=== PATIENT | male | born 1965 | race Caucasian/White ===

== ENCOUNTER 2021-04-29 09:25 | Inpatient (IN) ==
[2021-04-29 09:39] VITALS: BMI 28.8
[2021-04-29] MEDS ORDERED: MORPHINE SULFATE INJ 2 MG INJ IVP ONE (10:09)
[2021-04-29] MEDS ORDERED: ZOFRAN INJ 4 MG VIAL IVP ONE (10:09)
--- NOTE | 2021-04-29 10:13 | DR.GIBLEED ---
HPI Time Seen Time Seen by Provider: 04/29/21 10:06 Primary Care Physician Primary Care Physician: TREVOR STOVER HPI Comment HPI Comment: Started with pain and n/v several times last night followed by persistent stools with dark red blood; pain is worsening; no cp, sob, fever, chills or prior episodes of bloody diarrhea; smokes 1/2 ppd but denies alcohol. Complaints Chief Complaint:: PT C/O BEING UP ALL NIGHT HAVING CHANCE CONSTANT ABD PAINS , AND HAVING VOMITING ( DARK COLORED EMESIS ), AND BLOOD IN STOOLS ( DARK RED ) ..BR PT DOES TAKE AN ASA A DAY 325MG ,BR COVID-19 Coronavirus risk:travel/contact w/high risk person: No Has patient experienced Coronavirus symptoms: No Source History Provided: Patient Mode of Arrival Mode of Arrival: Ambulatory Timing Onset of Chief Complaint: 04/28/21 Quality Vomitus: DARK BROWN Stools: DARK RED PMH PMH Past Medical History: Yes Past Medical History: COPD, Diabetes, Hypertension and Seizures Past Medical History Comment: ENLARGED HEART ,BR Past Surgical History: Yes Past Surgical History Comment: LAP SURGERY TO KNEES Family History History of Family Medical Conditions: Yes Family Medical History: Diabetes Mellitus Social History Does patient currently use any type of tobacco product: Yes Have you used tobacco products in the last 12 months: Yes Type of Tobacco Use: Cigarettes How many years tobacco product used: 47 Does any household member use tobacco: No Alcohol Use: None Do you use any recreational Drugs:: No Lives With: Family Lives Where: Home Travel Risk Coronavirus risk:travel/contact w/high risk person: No Has patient experienced Coronavirus symptoms: No Infectious screening In the last 2 months have you had wt loss of >10#?: NO Have you had fever, night sweats or hemotysis?: No Have you traveled outside the country in the last 6 months?: No Isolation: Standard ROS Review of Systems Constitutional: No Symptoms Reported Eyes: No Symptoms Reported ENTM: No Symptoms Reported Respiratoy: No Symptoms Reported Cardiovascular: No Symptoms Reported Genitourinary: No Symptoms Reported Neurological: No Symptoms Reported Musculoskeletal: No Symptoms Reported Integumentary: No Symptoms Reported Hematologic/Lymphatic: No Symptoms Reported Endocrine: No Symptoms Reported Psychiatric: No Symptoms Reported PE Vital Signs Vitals: Temperature 97.9 F Pulse Rate 87 Respiratory Rate 15 Blood Pressure 148/80 O2 Sat by Pulse Oximetry 97 General Limitations: No Limitations General Appearance: Alert and In No Apparent Distress Head Head Exam: Normal Inspection Eyes Eye exam: Normal Appearance ENT ENT Exam: Normal Exam Neck Neck Exam: Normal Inspection Chest Chest Inspection: Normal Inspection Respiratory Respiratory Exam: Normal Lung Sounds Bilat Respiratory Exam: Bilateral: Clear to Auscultation Cardiovascular Cardiovascular Exam: Regular Rate and Normal Rhythm Abdominal Exam Abdominal Exam: Normal Inspection, Normal Bowel Sounds, Soft and Tenderness Abdominal Tenderness: Diffuse and Moderate Extremities Extremities Exam: Normal Inspection Neurologic Neurological Exam: Alert and Oriented X3 Skin Skin Exam: Warm, Dry, Intact and Normal Color DIFFERENTIAL DIAGNOSIS Differential Diagnosis Differential Diagnosis: Diverticulosis, Gastritis, Gastroenteritis and Inflammatory BD COURSE Reevaluation 1st: Improved (pain is better) ROR Labs Reviewed Laboratory Results Reviewed?: Yes Result Diagrams: 04/29/21 10:25 04/29/21 10:25 Laboratory: WBC 27.3 X10^3/uL (3.6-10.0) H 04/29/21 10:25 RBC 5.38 X10^6/uL (4.7-6.0) 04/29/21 10:25 Hgb 15.0 g/dL (13.5-18.0) 04/29/21 10:25 Hct 45.3 % (42.0-54.0) 04/29/21 10:25 MCV 84.1 fL (80.0-100.0) 04/29/21 10:25 MCH 27.8 pg (27.0-34.0) 04/29/21 10:25 MCHC 33.1 g/dL (33.0-35.0) 04/29/21 10:25 RDW 14.3 % (11.6-16.5) 04/29/21 10:25 Plt Count 374 X10^3/uL (150.0-450.0) 04/29/21 10:25 Plt Count Comment Adequate (ADEQUATE) 04/29/21 10:25 MPV 8.4 fL (7.4-11.0) 04/29/21 10:25 Neut % (Auto) 85.8 % (42.0-75.0) H 04/29/21 10:25 Lymph % (Auto) 7.6 % (21.0-51.0) L 04/29/21 10:25 [place] % (Auto) 5.5 % (0.0-13.0) 04/29/21 10:25 Eos % (Auto) 0.7 % (0.9-2.9) L 04/29/21 10:25 Baso % (Auto) 0.4 % (0.2-1.0) 04/29/21 10:25 Neut # (Auto) 23.4 x10^3/uL (2.2-4.8) H 04/29/21 10:25 Lymph # (Auto) 2.1 X10^3/uL (1.3-2.9) 04/29/21 10:25 [place] # (Auto) 1.5 x10^3/uL (0.3-0.8) H 04/29/21 10:25 Eos # (Auto) 0.2 x10^3/uL (0.0-0.2) 04/29/21 10:25 Baso # (Auto) 0.1 X10^3/uL (0.0-0.1) 04/29/21 10:25 Absolute Nucleated RBC 0.0 /100WBC 04/29/21 10:25 Total Counted 100 04/29/21 10:25 Neutrophils % (Manual) 85 % (39-76) H 04/29/21 10:25 Band Neutrophils % 5 % (0-10) 04/29/21 10:25 Lymphocytes % (Manual) 9 % (13-43) L 04/29/21 10:25 Monocytes % (Manual) 1 % (4-9) L 04/29/21 10:25 Plt Morphology Comment Normal (NORMAL) 04/29/21 10:25 RBC Morphology Normal (NORMAL) 04/29/21 10:25 Sodium 138 mmol/L (136-145) 04/29/21 10:25 Corrected Sodium 140 mmol/L (136-145) 04/29/21 10:25 Potassium 4.6 mmol/L (3.5-5.1) 04/29/21 10:25 Chloride 103 mmol/L (98-107) 04/29/21 10:25 Carbon Dioxide 27.4 mmol/L (21-32) 04/29/21 10:25 BUN 29 mg/dL (7-18) H 04/29/21 10:25 Creatinine 0.78 mg/dL (0.70-1.30) 04/29/21 10:25 Est GFR (MDRD) Af Amer > 60 (>60) 04/29/21 10:25 Est GFR (MDRD) Non-Af > 60 (>60) 04/29/21 10:25 Glucose 200 mg/dL (65-99) H 04/29/21 10:25 Calcium 9.4 mg/dL (8.5-10.1) 04/29/21 10:25 Corrected Calcium TNP 04/29/21 10:25 Total Bilirubin 0.50 mg/dL (0.2-1.0) 04/29/21 10:25 AST 11 Units/L (15-37) L 04/29/21 10:25 ALT 24 Units/L (12-78) 04/29/21 10:25 Alkaline Phosphatase 101 Units/L (46-116) 04/29/21 10:25 Total Protein 8.2 g/dL (6.4-8.2) 04/29/21 10:25 Albumin 3.7 g/dL (3.4-5.0) 04/29/21 10:25 Globulin 4.5 g/dL (2.5-4.5) 04/29/21 10:25 Albumin/Globulin Ratio 0.8 Ratio (1.1-2.1) L 04/29/21 10:25 Specimen Type Clean catch urine 04/29/21 10:20 Urine Color Yellow (YELLOW) 04/29/21 10:20 Urine Appearance Clear (CLEAR) 04/29/21 10:20 Urine pH 6.0 (5.0 - 8.0) 04/29/21 10:20 Ur Specific [place] 1.020 (1.000-1.030) 04/29/21 10:20 Urine Protein Negative (NEGATIVE) 04/29/21 10:20 Urine Glucose (UA) Negative (NEGATIVE) 04/29/21 10:20 Urine Ketones Negative (NEGATIVE) 04/29/21 10:20 Urine Occult Blood Negative (NEGATIVE) 04/29/21 10:20 Urine Nitrite Negative (NEGATIVE) 04/29/21 10:20 Urine Bilirubin Negative (NEGATIVE) 04/29/21 10:20 Urine Urobilinogen Normal (NORMAL) 04/29/21 10:20 Ur Leukocyte Esterase Negative (NEGATIVE) 04/29/21 10:20 SARS-CoV-2 (PCR) Negative (NEGATIVE) 04/29/21 12:01 Influenza Type A (PCR) Negative (NEGATIVE) 04/29/21 12:01 Influenza Type B (PCR) Negative (NEGATIVE) 04/29/21 12:01 RSV (PCR) Negative (NEGATIVE) 04/29/21 12:01 XRAY XRAY Interpreted by: Radiologist X-ray Results: ct abd/pelvis: 1. Focal splenic flexure colitis, probably diverticulitis. 2. Nonobstructing right renal calculus. Opioid Opioid Risk Tool Age (Luis A box if 16-45): No History of Preadolescent Sexual Abuse: No Total: 0 Total Score Risk Category: Low Risk Copyright: Antwon NICOLE predicting aberrant behaviors Diagnosis Discharge Problem: Colitis, Colitis with rectal bleeding Leukocytosis Qualifiers: Leukocytosis type: lymphocytosis Qualified Code(s): D72.820 - Lymphocytosis (symptomatic) Instructions Forms: Excuse From Work or School Precautions for COVID19 Patient Portal Social Distancing
[2021-04-29] MEDS ORDERED: MORPHINE SULFATE INJ 2 MG INJ ONE (10:14)
[2021-04-29] MEDS ORDERED: ZOFRAN INJ 4 MG VIAL ONE (10:14)
[2021-04-29] MEDS ORDERED: PERCOCET TAB 5/325 MG ONE (10:39)
[2021-04-29 10:40] LABS: BASOPHILS # (AUTO) 0.1 X10^3/uL (0.0-0.1); BASOPHILS % (AUTO) 0.4 % (0.2-1.0); EOSINOPHILS # (AUTO) 0.2 x10^3/uL (0.0-0.2); EOSINOPHILS % (AUTO) 0.7 % (0.9-2.9); HEMATOCRIT 45.3 % (42.0-54.0); LYMPHOCYTES # (AUTO) 2.1 X10^3/uL (1.3-2.9); LYMPHOCYTES % (AUTO) 7.6 % (21.0-51.0); MEAN CORPUSCULAR HEMOGLOBIN 27.8 pg (27.0-34.0); MEAN CORPUSCULAR HGB CONC 33.1 g/dL (33.0-35.0); MEAN CORPUSCULAR VOLUME 84.1 fL (80.0-100.0); MEAN PLATELET VOLUME 8.4 fL (7.4-11.0); MONOCYTES # (AUTO) 1.5 x10^3/uL (0.3-0.8); MONOCYTES % (AUTO) 5.5 % (0.0-13.0); NEUTROPHILS # (AUTO) 23.4 x10^3/uL (2.2-4.8); NEUTROPHILS % (AUTO) 85.8 % (42.0-75.0); PLATELET COUNT 374 X10^3/uL (150.0-450.0); RED BLOOD COUNT 5.38 X10^6/uL (4.7-6.0); RED CELL DISTRIBUTION WIDTH 14.3 % (11.6-16.5); WHITE BLOOD COUNT 27.3 X10^3/uL (3.6-10.0)
[2021-04-29 10:47] LABS: ALANINE AMINOTRANSFERASE 24 Units/L (12-78); ALBUMIN 3.7 g/dL (3.4-5.0); ALKALINE PHOSPHATASE 101 Units/L (46-116); ASPARTATE AMINO TRANSFERASE 11 Units/L (15-37); BLOOD UREA NITROGEN 29 mg/dL (7-18); CALCIUM 9.4 mg/dL (8.5-10.1); CARBON DIOXIDE 27.4 mmol/L (21-32); CHLORIDE 103 mmol/L (98-107); COR NA(FOR HYPERGLY) 140 mmol/L (136-145); CREATININE 0.78 mg/dL (0.70-1.30); SODIUM 138 mmol/L (136-145); TOTAL PROTEIN 8.2 g/dL (6.4-8.2); eGFR NON BLACK RACES > 60 (>60)
[2021-04-29 11:01] LABS: BAND NEUTROPHILS % 5 % (0-10); PLATELET MORPHOLOGY COMMENT NORMAL (NORMAL)
[2021-04-29 11:03] LABS: BILIRUBIN,URINE NEGATIVE (NEGATIVE); BLOOD/HEMOGLOBIN,URINE NEGATIVE (NEGATIVE); GLUCOSE, URINE NEGATIVE (NEGATIVE); KETONES,URINE NEGATIVE (NEGATIVE); LEUKOCYTE ESTERASE ,URINE NEGATIVE (NEGATIVE); NITRITES,URINE NEGATIVE (NEGATIVE); PROTEIN,URINE NEGATIVE (NEGATIVE); UROBILINOGEN,URINE NORMAL (NORMAL)
[2021-04-29 11:05] LABS: APPEARANCE,URINE CLEAR (CLEAR); COLOR,URINE YELLOW (YELLOW)
--- NOTE | 2021-04-29 11:42 | CT ---
HISTORYABD PAIN, MELENA hypertension. History of seizures. Diabetes mellitus.STUDYABDOMEN/PELVIS W/O CONCOMPARISONNoneTECHNIQUEMultiple CT axial images of the abdomen and pelvis were obtained without IV contrast. Coronal and sagittal images were reconstructed. Dose reduction techniques included Automated Exposure Control (AEC) and adjustment of mA and kV.FINDINGSFocal edema is noted in the left upper abdomen around the splenic flexure of the colon and involving the proximal descending segment. There is wall thickening and a few isolated diverticula. This is compatible with colitis. Probably diverticulitis.No pericolonic abscess no bowel obstruction or free air.A normal appendix is not identified. But there is no inflammation around the cecum or at the expected location of the appendix.Small stone right kidney measures 2 mm. No abnormal calcification in the left kidney. No hydronephrosis or perirenal edema.The ureters are not dilated. Urinary bladder is contracted.Small right lung nodule measures 4 mm, image 2 series 3.Typically, this does not require any routine surveillance. If the patient is high risk for cancer, then you might consider an optional follow up chest CT in 12 months. This follow-up is based on recommendations established by the Fleischner Society 2017.Atherosclerotic calcifications are present in the coronary arteries. Liver, gallbladder, spleen, adrenal glands, and pancreas are unremarkable. Degenerative changes are present in the spine. Osteoarthritic changes are present in the left hip. There may be avascular necrosis or this could be a large subchondral cyst in the femoral head.IMPRESSION1. Focal splenic flexure colitis, probably diverticulitis2. Nonobstructing right renal calculusElectronically signed by: Maldonado Cai (Apr 29, 2021 11:39:49)
[2021-04-29] MEDS ORDERED: ZOSYN VIAL 3.375 GRAMS 3.375 G in NS 100 ML IV + SPIKE MINIBAG* 100 ML IV ONE (12:06)
[2021-04-29] MEDS ORDERED: NS 1000 ML 1,000 ML ONE (12:20)
[2021-04-29] MEDS ORDERED: ZOSYN VIAL 3.375 GRAMS IV ONE (12:20)
[2021-04-29] MEDS ORDERED: NS 100 ML IV + SPIKE MINIBAG* 100 ML IV ONE (12:21)
[2021-04-29] MEDS: ZOSYN VIAL 3.375 GRAMS 3.375 G in NS 100 ML IV + SPIKE MINIBAG* 100 ML IV SCH ×3 (12:30→21:29)
[2021-04-29] MEDS: NS 1000 ML 1,000 ML IV SCH (12:30)
[2021-04-29] MEDS ORDERED: MORPHINE SULFATE INJ 4 MG ONE (17:35)
[2021-04-29] MEDS: MORPHINE SULFATE INJ 4 MG IVP PRN ×2 (17:38→23:41)
[2021-04-29] MEDS: ZOFRAN INJ 4 MG VIAL IVP PRN (23:41)
[2021-04-30] MEDS: NS 1000 ML 1,000 ML IV SCH ×3 (02:47→18:20)
[2021-04-30] MEDS: ZOSYN VIAL 3.375 GRAMS 3.375 G in NS 100 ML IV + SPIKE MINIBAG* 100 ML IV SCH ×3 (06:00→21:28)
[2021-04-30] MEDS: MORPHINE SULFATE INJ 4 MG IVP PRN ×3 (06:01→21:55)
[2021-04-30 06:21] LABS: BASOPHILS % (AUTO) 0.2 % (0.2-1.0); EOSINOPHILS # (AUTO) 0.1 x10^3/uL (0.0-0.2); EOSINOPHILS % (AUTO) 0.5 % (0.9-2.9); HEMATOCRIT 42.8 % (42.0-54.0); HEMOGLOBIN 14.3 g/dL (13.5-18.0); LYMPHOCYTES # (AUTO) 2.2 X10^3/uL (1.3-2.9); LYMPHOCYTES % (AUTO) 10.1 % (21.0-51.0); MEAN CORPUSCULAR HEMOGLOBIN 28.2 pg (27.0-34.0); MEAN CORPUSCULAR HGB CONC 33.3 g/dL (33.0-35.0); MEAN CORPUSCULAR VOLUME 84.7 fL (80.0-100.0); MEAN PLATELET VOLUME 8.4 fL (7.4-11.0); MONOCYTES # (AUTO) 1.1 x10^3/uL (0.3-0.8); MONOCYTES % (AUTO) 5.1 % (0.0-13.0); NEUTROPHILS # (AUTO) 18.1 x10^3/uL (2.2-4.8); NEUTROPHILS % (AUTO) 84.1 % (42.0-75.0); PLATELET COUNT 353 X10^3/uL (150.0-450.0); RED BLOOD COUNT 5.06 X10^6/uL (4.7-6.0); RED CELL DISTRIBUTION WIDTH 14.4 % (11.6-16.5); WHITE BLOOD COUNT 21.5 X10^3/uL (3.6-10.0)
[2021-04-30 06:27] LABS: ALANINE AMINOTRANSFERASE 16 Units/L (12-78); ALBUMIN 3.2 g/dL (3.4-5.0); ALKALINE PHOSPHATASE 94 Units/L (46-116); ASPARTATE AMINO TRANSFERASE 9 Units/L (15-37); BLOOD UREA NITROGEN 22 mg/dL (7-18); CALCIUM 8.9 mg/dL (8.5-10.1); CARBON DIOXIDE 28.3 mmol/L (21-32); CHLORIDE 103 mmol/L (98-107); COR CA(FOR HYPOALB) 9.5 mg/dL (8.5-10.1); COR NA(FOR HYPERGLY) 140 mmol/L (136-145); CREATININE 0.63 mg/dL (0.70-1.30); SODIUM 138 mmol/L (136-145); TOTAL PROTEIN 7.5 g/dL (6.4-8.2); eGFR NON BLACK RACES > 60 (>60)
[2021-04-30 07:02] LABS: PLATELET MORPHOLOGY COMMENT NORMAL (NORMAL)
[2021-04-30] MEDS ORDERED: MORPHINE SULFATE INJ 4 MG IVP PRN (07:13)
[2021-04-30] MEDS: HumuLIN R SUBCUT PRN (13:06)
--- NOTE | 2021-04-30 15:13 | DR.H&P ---
H&P - History & Physical for Day of: H&P Date: 04/29/21 - Chief Complaint Chief Complaint: ABDOMINAL PAIN, BLOOD IN STOOL - History of Present Illness History of Present Illness: Pt is 56 WM, ER admission with co he Started with pain and n/v several times last night followed by persistent stools with dark red blood; pain is worsening; no cp, sob, fever, chills or prior episodes of bloody diarrhea; smokes 1/2 ppd but denies alcohol. Pt has pmh of "irregular hear beat", copd, htn, dm. pt admitted for treatment of acute colitis, gi bleed. - Past Medical History Past Medical History: Hypertension, Diabetes, Seizures, COPD - Past Surgical History Surgical History: Ortho Surgery - Family History Family Medical History: Diabetes Mellitus - Social History Does patient currently use any type of tobacco product: Yes Have you used tobacco products in the last 12 months: Yes Type of Tobacco Use: Cigarettes How many years tobacco product used: 47 Does any household member use tobacco: No Alcohol Use: None Drug Use: None - Medications Home Medications: No Known Drug Allergies Allergy (Verified 04/29/21 09:33) CONTINUE taking the following medications amoxicillin-pot clavulanate [Augmentin] 1 tab PO BID 04/29/21 [History] aspirin 325 mg PO DAILY 04/29/21 [History] celecoxib 200 mg PO DAILY 04/29/21 [History] cetirizine 10 mg PO HS 04/29/21 [History] cyclobenzaprine 10 mg PO DAILY PRN 04/29/21 [History] diclofenac sodium 50 mg PO BID PRN 04/29/21 [History] famotidine 20 mg PO DAILY 04/29/21 [History] gabapentin 300 mg PO BID 04/29/21 [History] lisinopril 10 mg PO BID 04/29/21 [History] lorazepam 1 mg PO BID PRN 04/29/21 [History] omeprazole 20 mg PO DAILY 04/29/21 [History] - Review of Systems Constitutional: Weakness Eyes: No Symptoms Reported ENT: No Symptoms Reported Respiratory: No Symptoms Reported Cardiovascular: No Symptoms Reported. denies: Edema Gastrointestinal: Nausea, Vomiting, Abdominal Pain Genitourinary: No Symptoms Reported Musculoskeletal: No Symptoms Reported Skin: No Symptoms Reported Neurological: No Symptoms Reported - Physical Exam Vital Signs: Temperature 98.5 F Pulse Rate [Left Radial] 92 Pulse Rate 85 Respiratory Rate 20 Blood Pressure [Left Arm] 135/72 Blood Pressure 146/82 O2 Sat by Pulse Oximetry 95 Oriented: Normal Eyes: Normal Ear: Normal Nose: Normal Throat: Normal Respiratory: RLL Diminished, LLL Diminished Cardiovascular: Irregular. negative: Edema : Normal Auscultation: Bowel Sounds: Increased Tenderness: LLQ, Epigastric Skin: Decreased Turgur Musculoskeletal: Normal Psychiatric: Anxiety Affect: Anxious Speech Pattern: Clear, Appropriate - Assessment/Plan (1) Colitis with rectal bleeding Status: Acute Plan: ADMIT, NPO, IV HYDRATION. IV ATBX, PAIN AND NAUSEA CONTROL. RESP CONSULT FOR PRN RT. VERIFY HOME MEDICATION. BP CONTROL, STOOL STUDIES (2) COPD (chronic obstructive pulmonary disease) Status: Acute (3) Hypertension Status: Acute (4) Diabetes Status: Acute - Allergies Allergies/Adverse Reactions: Allergies Allergy/AdvReac Type Severity Reaction Status Date / Time No Known Drug Allergies Allergy Verified 04/29/21 09:33
[2021-04-30] MEDS: NICOTINE PATCH TD SCH (17:08)
[2021-04-30] MEDS: PROTONIX INJ 40 MG VIAL IVP SCH (17:08)
[2021-04-30] MEDS: ZOFRAN INJ 4 MG VIAL IVP PRN (18:20)
[2021-04-30] MEDS: NEURONTIN CAP 300 MG PO SCH (20:50)
[2021-04-30] MEDS: ZESTRIL TAB 10 MG PO SCH (20:51)
[2021-05-01] MEDS: MORPHINE SULFATE INJ 4 MG IVP PRN ×3 (01:41→20:32)
[2021-05-01] MEDS: NS 1000 ML 1,000 ML IV SCH ×2 (04:21→20:31)
[2021-05-01] MEDS: ZOSYN VIAL 3.375 GRAMS 3.375 G in NS 100 ML IV + SPIKE MINIBAG* 100 ML IV SCH ×3 (05:35→21:03)
[2021-05-01] MEDS: NICOTINE PATCH TD SCH (08:31)
[2021-05-01] MEDS: NEURONTIN CAP 300 MG PO SCH ×2 (08:31→20:31)
[2021-05-01] MEDS: PROTONIX INJ 40 MG VIAL IVP SCH (08:31)
[2021-05-01] MEDS: ZESTRIL TAB 10 MG PO SCH ×2 (08:33→20:32)
[2021-05-01] MEDS: ATIVAN TAB 1 MG PO PRN ×2 (08:51→21:00)
[2021-05-01 10:46] LABS: BASOPHILS % (AUTO) 0.2 % (0.2-1.0); EOSINOPHILS # (AUTO) 0.1 x10^3/uL (0.0-0.2); EOSINOPHILS % (AUTO) 0.4 % (0.9-2.9); HEMATOCRIT 41.3 % (42.0-54.0); HEMOGLOBIN 13.4 g/dL (13.5-18.0); LYMPHOCYTES # (AUTO) 1.8 X10^3/uL (1.3-2.9); LYMPHOCYTES % (AUTO) 7.9 % (21.0-51.0); MEAN CORPUSCULAR HEMOGLOBIN 27.6 pg (27.0-34.0); MEAN CORPUSCULAR HGB CONC 32.4 g/dL (33.0-35.0); MEAN CORPUSCULAR VOLUME 85.2 fL (80.0-100.0); MEAN PLATELET VOLUME 8.5 fL (7.4-11.0); MONOCYTES # (AUTO) 1.6 x10^3/uL (0.3-0.8); MONOCYTES % (AUTO) 7.1 % (0.0-13.0); NEUTROPHILS # (AUTO) 19.2 x10^3/uL (2.2-4.8); NEUTROPHILS % (AUTO) 84.4 % (42.0-75.0); PLATELET COUNT 346 X10^3/uL (150.0-450.0); RED BLOOD COUNT 4.84 X10^6/uL (4.7-6.0); RED CELL DISTRIBUTION WIDTH 14.1 % (11.6-16.5); WHITE BLOOD COUNT 22.7 X10^3/uL (3.6-10.0)
[2021-05-01 11:04] LABS: ALANINE AMINOTRANSFERASE 13 Units/L (12-78); ALKALINE PHOSPHATASE 100 Units/L (46-116); ASPARTATE AMINO TRANSFERASE 8 Units/L (15-37); BLOOD UREA NITROGEN 14 mg/dL (7-18); CALCIUM 8.8 mg/dL (8.5-10.1); CARBON DIOXIDE 29.9 mmol/L (21-32); CHLORIDE 102 mmol/L (98-107); COR CA(FOR HYPOALB) 9.6 mg/dL (8.5-10.1); COR NA(FOR HYPERGLY) 139 mmol/L (136-145); CREATININE 0.66 mg/dL (0.70-1.30); SODIUM 138 mmol/L (136-145); TOTAL PROTEIN 7.4 g/dL (6.4-8.2); eGFR NON BLACK RACES > 60 (>60)
[2021-05-01 11:30] LABS: BAND NEUTROPHILS % 1 % (0-10)
[2021-05-01 11:31] LABS: PLATELET MORPHOLOGY COMMENT NORMAL (NORMAL)
[2021-05-01] MEDS: HumuLIN R SUBCUT PRN (12:28)
[2021-05-01] MEDS: LEVAQUIN PREMIX IV 500 MG 500 MG/100 ML BAG IV SCH (16:06)
[2021-05-02] MEDS: MORPHINE SULFATE INJ 4 MG IVP PRN ×4 (00:15→19:30)
[2021-05-02] MEDS: NS 1000 ML 1,000 ML IV SCH ×3 (05:09→23:19)
[2021-05-02] MEDS: ZOSYN VIAL 3.375 GRAMS 3.375 G in NS 100 ML IV + SPIKE MINIBAG* 100 ML IV SCH ×3 (05:09→21:29)
[2021-05-02 08:34] LABS: BASOPHILS # (AUTO) 0.1 X10^3/uL (0.0-0.1); BASOPHILS % (AUTO) 0.8 % (0.2-1.0); EOSINOPHILS # (AUTO) 0.3 x10^3/uL (0.0-0.2); EOSINOPHILS % (AUTO) 1.9 % (0.9-2.9); HEMATOCRIT 39.8 % (42.0-54.0); HEMOGLOBIN 13.2 g/dL (13.5-18.0); LYMPHOCYTES # (AUTO) 2.8 X10^3/uL (1.3-2.9); LYMPHOCYTES % (AUTO) 17.3 % (21.0-51.0); MEAN CORPUSCULAR HEMOGLOBIN 28.3 pg (27.0-34.0); MEAN CORPUSCULAR HGB CONC 33.2 g/dL (33.0-35.0); MEAN CORPUSCULAR VOLUME 85.2 fL (80.0-100.0); MEAN PLATELET VOLUME 8.5 fL (7.4-11.0); MONOCYTES # (AUTO) 1.2 x10^3/uL (0.3-0.8); MONOCYTES % (AUTO) 7.8 % (0.0-13.0); NEUTROPHILS # (AUTO) 11.5 x10^3/uL (2.2-4.8); NEUTROPHILS % (AUTO) 72.2 % (42.0-75.0); PLATELET COUNT 304 X10^3/uL (150.0-450.0); RED BLOOD COUNT 4.66 X10^6/uL (4.7-6.0); RED CELL DISTRIBUTION WIDTH 13.9 % (11.6-16.5); WHITE BLOOD COUNT 15.9 X10^3/uL (3.6-10.0)
[2021-05-02 08:55] LABS: ALANINE AMINOTRANSFERASE 10 Units/L (12-78); ALBUMIN 2.7 g/dL (3.4-5.0); ALKALINE PHOSPHATASE 93 Units/L (46-116); ASPARTATE AMINO TRANSFERASE 9 Units/L (15-37); BLOOD UREA NITROGEN 10 mg/dL (7-18); CALCIUM 8.7 mg/dL (8.5-10.1); CARBON DIOXIDE 31.3 mmol/L (21-32); CHLORIDE 102 mmol/L (98-107); COR CA(FOR HYPOALB) 9.7 mg/dL (8.5-10.1); COR NA(FOR HYPERGLY) 140 mmol/L (136-145); SODIUM 139 mmol/L (136-145); TOTAL PROTEIN 7.1 g/dL (6.4-8.2); eGFR NON BLACK RACES > 60 (>60)
[2021-05-02] MEDS: NEURONTIN CAP 300 MG PO SCH ×2 (09:20→20:41)
[2021-05-02] MEDS: NICOTINE PATCH TD SCH (09:20)
[2021-05-02] MEDS: LEVAQUIN PREMIX IV 500 MG 500 MG/100 ML BAG IV SCH (09:20)
[2021-05-02] MEDS: ZESTRIL TAB 10 MG PO SCH ×2 (09:22→20:41)
[2021-05-02] MEDS: PROTONIX INJ 40 MG VIAL IVP SCH (09:22)
--- NOTE | 2021-05-02 10:19 | RAD ---
HISTORYABDOMINAL DISTENTIONSTUDYACUTE ABDOMEN x-ray SERIES, one view chest and two view abdomenCOMPARISONCT abdomen 04/29/2021FINDINGSHeart is normal in size. Moderate to prominent arthritic changes are seen in the shoulders. Mild linear atelectasis is seen in the lingula. Possible mild underlying COPD.No evidence of free intraperitoneal air. New moderate dilation of the colon with air. Colon measures up to 7.1 cm in diameter. Mild increased small bowel air is seen. There is a single mildly prominent loop of small bowel in the left mid abdomen measuring 2.9 cm in diameter. No air-fluid levels are seen.IMPRESSIONNew moderate dilation of colon with air and mild dilation of small bowel with air is most likely due to ileus.Electronically signed by: Prakash Medel (May 02, 2021 10:16:56)
[2021-05-02] MEDS ORDERED: DUONEB 0.5 MG/3 MG (3 mL) NEB PRN (17:00)
[2021-05-02] MEDS: ATIVAN TAB 1 MG PO PRN (20:41)
[2021-05-03] MEDS: MORPHINE SULFATE INJ 4 MG IVP PRN ×3 (01:08→09:43)
[2021-05-03] MEDS: ZOSYN VIAL 3.375 GRAMS 3.375 G in NS 100 ML IV + SPIKE MINIBAG* 100 ML IV SCH ×3 (05:22→21:06)
[2021-05-03 08:16] LABS: BASOPHILS # (AUTO) 0.1 X10^3/uL (0.0-0.1); BASOPHILS % (AUTO) 0.5 % (0.2-1.0); EOSINOPHILS # (AUTO) 0.3 x10^3/uL (0.0-0.2); EOSINOPHILS % (AUTO) 2.5 % (0.9-2.9); HEMOGLOBIN 12.7 g/dL (13.5-18.0); LYMPHOCYTES # (AUTO) 2.6 X10^3/uL (1.3-2.9); LYMPHOCYTES % (AUTO) 21.8 % (21.0-51.0); MEAN CORPUSCULAR HEMOGLOBIN 28.1 pg (27.0-34.0); MEAN CORPUSCULAR HGB CONC 33.3 g/dL (33.0-35.0); MEAN CORPUSCULAR VOLUME 84.3 fL (80.0-100.0); MEAN PLATELET VOLUME 8.1 fL (7.4-11.0); MONOCYTES % (AUTO) 8.4 % (0.0-13.0); NEUTROPHILS # (AUTO) 7.9 x10^3/uL (2.2-4.8); NEUTROPHILS % (AUTO) 66.8 % (42.0-75.0); PLATELET COUNT 310 X10^3/uL (150.0-450.0); RED BLOOD COUNT 4.51 X10^6/uL (4.7-6.0); RED CELL DISTRIBUTION WIDTH 13.8 % (11.6-16.5); WHITE BLOOD COUNT 11.8 X10^3/uL (3.6-10.0)
[2021-05-03] MEDS: NICOTINE PATCH TD SCH (08:37)
[2021-05-03] MEDS: ZESTRIL TAB 10 MG PO SCH ×3 (08:38→20:42)
[2021-05-03] MEDS: PROTONIX INJ 40 MG VIAL IVP SCH (08:38)
[2021-05-03] MEDS: NEURONTIN CAP 300 MG PO SCH ×2 (08:38→20:41)
[2021-05-03 09:14] LABS: ALANINE AMINOTRANSFERASE 11 Units/L (12-78); ALBUMIN 2.5 g/dL (3.4-5.0); ALKALINE PHOSPHATASE 84 Units/L (46-116); ASPARTATE AMINO TRANSFERASE 10 Units/L (15-37); BLOOD UREA NITROGEN 9 mg/dL (7-18); CALCIUM 8.3 mg/dL (8.5-10.1); CARBON DIOXIDE 27.5 mmol/L (21-32); CHLORIDE 103 mmol/L (98-107); COR CA(FOR HYPOALB) 9.5 mg/dL (8.5-10.1); CREATININE 0.64 mg/dL (0.70-1.30); SODIUM 139 mmol/L (136-145); TOTAL PROTEIN 6.4 g/dL (6.4-8.2); eGFR NON BLACK RACES > 60 (>60)
[2021-05-03] MEDS: LEVAQUIN PREMIX IV 500 MG 500 MG/100 ML BAG IV SCH (09:43)
--- NOTE | 2021-05-03 11:02 | RAD ---
HISTORYABDOMINAL DISTENTION, ILEUSSTUDYACUTE ABDOMEN x-ray SERIES, one view chest and two view abdomenCOMPARISONX-ray 05/02/2021FINDINGSLikely mild atelectasis at the left lung base. Heart is normal in size. No pneumothorax or pleural effusion is seen.No free intraperitoneal air is seen. There is persistent moderate dilation of the colon with air. Ascending colon is dilated to 8.9 cm compared to 7.6 cm previously. Mild constipation is seen in the cecum. Mild increased small bowel air and distention is seen compared to prior study, also. No air-fluid levels are seen.IMPRESSIONModerate ileus has slightly worsened since prior study.Electronically signed by: Prakash Medel (May 03, 2021 11:00:21)
[2021-05-03] MEDS: MORPHINE SULFATE INJ 2 MG INJ IVP PRN ×3 (13:45→21:51)
[2021-05-03] MEDS: NS 1000 ML 1,000 ML IV SCH ×2 (15:18→20:41)
[2021-05-03] MEDS ORDERED: DULCOLAX SUPPOSITORY 10 MG RECTAL ONE (18:53)
[2021-05-03 21:09] LABS: CRYPTOSPORIDIUM PARVUM ANTIGEN NEGATIVE (NEGATIVE); GIARDIA LAMBLIA ANTIGEN NEGATIVE (NEGATIVE)
[2021-05-04] MEDS: MORPHINE SULFATE INJ 2 MG INJ IVP PRN ×4 (02:00→20:34)
[2021-05-04] MEDS: ZOSYN VIAL 3.375 GRAMS 3.375 G in NS 100 ML IV + SPIKE MINIBAG* 100 ML IV SCH ×3 (05:46→21:24)
[2021-05-04 06:12] LABS: BASOPHILS % (AUTO) 0.4 % (0.2-1.0); EOSINOPHILS # (AUTO) 0.3 x10^3/uL (0.0-0.2); EOSINOPHILS % (AUTO) 2.2 % (0.9-2.9); HEMATOCRIT 36.3 % (42.0-54.0); HEMOGLOBIN 12.2 g/dL (13.5-18.0); LYMPHOCYTES # (AUTO) 2.3 X10^3/uL (1.3-2.9); LYMPHOCYTES % (AUTO) 19.4 % (21.0-51.0); MEAN CORPUSCULAR HGB CONC 33.5 g/dL (33.0-35.0); MEAN CORPUSCULAR VOLUME 83.7 fL (80.0-100.0); MEAN PLATELET VOLUME 8.1 fL (7.4-11.0); MONOCYTES # (AUTO) 1.2 x10^3/uL (0.3-0.8); MONOCYTES % (AUTO) 10.3 % (0.0-13.0); NEUTROPHILS % (AUTO) 67.7 % (42.0-75.0); PLATELET COUNT 336 X10^3/uL (150.0-450.0); RED BLOOD COUNT 4.34 X10^6/uL (4.7-6.0); RED CELL DISTRIBUTION WIDTH 13.6 % (11.6-16.5); WHITE BLOOD COUNT 11.8 X10^3/uL (3.6-10.0)
[2021-05-04 06:38] LABS: BLOOD UREA NITROGEN 8 mg/dL (7-18); CARBON DIOXIDE 25.9 mmol/L (21-32); CHLORIDE 102 mmol/L (98-107); COR NA(FOR HYPERGLY) 139 mmol/L (136-145); CREATININE 0.63 mg/dL (0.70-1.30); SODIUM 138 mmol/L (136-145); eGFR NON BLACK RACES > 60 (>60)
--- NOTE | 2021-05-04 06:40 | RAD ---
HISTORYAbdominal distensionSTUDYAcute abdominal [id number]/28/2021FINDINGSThe heart is within normal limits in size. The emily are normal. The lung carreno are clear. There is continued colonic distension slightly increased when compared with the prior examination. Cecal diameter 9.9 cm as compared to a 0.9 cm on the prior examination. Gas can be seen in the rectum. There is normal caliber small bowel in the right lower quadrant. Findings are most consistent with a worsening ileus. No pneumoperitoneum is identified. No abnormal masses or abnormal calcifications are identified. Regional skeleton is intact.IMPRESSIONSlightly worsening colonic ileusElectronically signed by: MARCELO TRIANA (May 04, 2021 06:38:46)
[2021-05-04 06:45] LABS: CALCIUM 8.3 mg/dL (8.5-10.1)
[2021-05-04] MEDS ORDERED: KLOR-CON PO PRN (07:32)
[2021-05-04] MEDS ORDERED: MICRO K EXTEN CAP 10 MEQ PO PRN (07:32)
[2021-05-04] MEDS ORDERED: K-RIDER 10 MEQ/NS 100 ML 10 MEQ/100 ML BAG IV PRN (07:32)
[2021-05-04] MEDS ORDERED: POTASSIUM CHL 60 MEQ/NS 0.45% 500 ML IV PRN (07:32)
[2021-05-04] MEDS ORDERED: POTASSIUM CHL 40 MEQ/NS 0.45% 500 ML IV PRN (07:32)
[2021-05-04] MEDS ORDERED: POTASSIUM CHLORIDE LIQ 20 MEQ UDC PO PRN (07:32)
[2021-05-04] MEDS: LEVAQUIN PREMIX IV 500 MG 500 MG/100 ML BAG IV SCH (08:37)
[2021-05-04] MEDS: K-DUR TAB 20 MEQ PO PRN ×2 (08:37→11:48)
[2021-05-04] MEDS: NEURONTIN CAP 300 MG PO SCH ×2 (08:38→20:35)
[2021-05-04] MEDS: PROTONIX INJ 40 MG VIAL IVP SCH (08:39)
[2021-05-04] MEDS: ZESTRIL TAB 10 MG PO SCH ×2 (08:39→20:35)
[2021-05-04] MEDS ORDERED: ZITHROMAX TAB 250 MG PO ONE (08:56)
[2021-05-04] MEDS: NICOTINE PATCH TD SCH (08:59)
[2021-05-04] MEDS: MAGNESIUM SULFATE 1 GRAM/100 mL PREMIX 1 GM/100 ML BAG IV PRN ×2 (10:20→11:49)
[2021-05-04 11:55] LABS: ALANINE AMINOTRANSFERASE 12 Units/L (12-78); ALBUMIN 2.6 g/dL (3.4-5.0); ALKALINE PHOSPHATASE 97 Units/L (46-116); ASPARTATE AMINO TRANSFERASE 14 Units/L (15-37); COR CA(FOR HYPOALB) 9.4 mg/dL (8.5-10.1); TOTAL PROTEIN 6.7 g/dL (6.4-8.2)
[2021-05-04] MEDS: NS 1000 ML 1,000 ML IV SCH (17:58)
[2021-05-04] MEDS: HumuLIN R SUBCUT PRN (20:38)
[2021-05-05] MEDS: ZOSYN VIAL 3.375 GRAMS 3.375 G in NS 100 ML IV + SPIKE MINIBAG* 100 ML IV SCH ×2 (05:42→14:55)
[2021-05-05] MEDS: MORPHINE SULFATE INJ 2 MG INJ IVP PRN ×2 (05:43→09:00)
[2021-05-05 06:10] LABS: BASOPHILS % (AUTO) 0.4 % (0.2-1.0); EOSINOPHILS # (AUTO) 0.3 x10^3/uL (0.0-0.2); EOSINOPHILS % (AUTO) 2.5 % (0.9-2.9); HEMATOCRIT 36.3 % (42.0-54.0); HEMOGLOBIN 12.4 g/dL (13.5-18.0); LYMPHOCYTES # (AUTO) 2.3 X10^3/uL (1.3-2.9); LYMPHOCYTES % (AUTO) 21.2 % (21.0-51.0); MEAN CORPUSCULAR HEMOGLOBIN 28.7 pg (27.0-34.0); MEAN CORPUSCULAR HGB CONC 34.1 g/dL (33.0-35.0); MEAN CORPUSCULAR VOLUME 84.2 fL (80.0-100.0); MEAN PLATELET VOLUME 8.1 fL (7.4-11.0); MONOCYTES # (AUTO) 1.5 x10^3/uL (0.3-0.8); MONOCYTES % (AUTO) 13.5 % (0.0-13.0); NEUTROPHILS # (AUTO) 6.9 x10^3/uL (2.2-4.8); NEUTROPHILS % (AUTO) 62.4 % (42.0-75.0); PLATELET COUNT 360 X10^3/uL (150.0-450.0); RED BLOOD COUNT 4.31 X10^6/uL (4.7-6.0); RED CELL DISTRIBUTION WIDTH 13.6 % (11.6-16.5)
[2021-05-05 06:25] LABS: ALANINE AMINOTRANSFERASE 15 Units/L (12-78); ALBUMIN 2.6 g/dL (3.4-5.0); ALKALINE PHOSPHATASE 88 Units/L (46-116); ASPARTATE AMINO TRANSFERASE 11 Units/L (15-37); BLOOD UREA NITROGEN 7 mg/dL (7-18); CALCIUM 8.5 mg/dL (8.5-10.1); CARBON DIOXIDE 31.2 mmol/L (21-32); CHLORIDE 105 mmol/L (98-107); COR CA(FOR HYPOALB) 9.6 mg/dL (8.5-10.1); COR NA(FOR HYPERGLY) 143 mmol/L (136-145); CREATININE 0.63 mg/dL (0.70-1.30); MAGNESIUM 2.1 mg/dL (1.7-2.9); SODIUM 141 mmol/L (136-145); TOTAL PROTEIN 6.6 g/dL (6.4-8.2); eGFR NON BLACK RACES > 60 (>60)
--- NOTE | 2021-05-05 06:44 | RAD ---
HISTORYAbdominal distensionSTUDYAcute abdominal [id number]/29/2021FINDINGSHeart is within normal limits in size. The emily are normal. The lung carreno are clear. There is continued colonic distension slightly improved when compared to the prior examination. No small bowel dilatation is identified. No pneumoperitoneum is identified. No abnormal masses or abnormal calcifications are identified. Regional skeleton is intact. Findings are consistent with a slightly improved colonic ileus.IMPRESSIONSlightly improved colonic ileusLungs clearElectronically signed by: MARCELO TRIANA (May 05, 2021 06:41:52)
[2021-05-05] MEDS: NS 1000 ML 1,000 ML IV SCH ×2 (06:49→13:43)
[2021-05-05] MEDS: NEURONTIN CAP 300 MG PO SCH (08:40)
[2021-05-05] MEDS: NICOTINE PATCH TD SCH (08:40)
[2021-05-05] MEDS: LEVAQUIN PREMIX IV 500 MG 500 MG/100 ML BAG IV SCH (08:40)
[2021-05-05] MEDS: PROTONIX INJ 40 MG VIAL IVP SCH (08:41)
[2021-05-05] MEDS: ZESTRIL TAB 10 MG PO SCH (08:42)
[2021-05-05] MEDS ORDERED: ZITHROMAX TAB 250 MG PO SCH (09:00)
[2021-05-05 13:00] VITALS: BP 146/82
== END 2021-05-05 15:00 | disposition home or self-care (01) | DRG 371 ==
LOC: ER 09:31 → OBS 12:03 → MED/SURG 18:37
PROVIDERS: ADMIT Internal Medicine; ATTEND Internal Medicine
DX: F41.8 Other specified anxiety disorders; R26.89 Other abnormalities of gait and mobility; Z72.0 Tobacco use; A04.5 Campylobacter enteritis; E11.65 Type 2 diabetes mellitus with hyperglycemia; K57.31 Diverticulosis of large intestine without perforation or abscess with bleeding; I10 Essential (primary) hypertension; J44.9 Chronic obstructive pulmonary disease, unspecified